=== PATIENT | male | born 1940 | race Caucasian/White ===

== ENCOUNTER 2017-01-09 09:26 | Inpatient (IN) | payer MEDICARE, MEDICAID ==
[~2017-01-09] VITALS: Ht 180.3 cm; Wt 112.0 kg
[~2017-01-09 09:26] MED LIST: ACTOS DPS30 MG PO; COUMADIN5 MG PO; DULERA 100/58.8 GM IH; EFFEXOR XR75 MG PO; FLOMAX DPS0.4 MG PO; HYDRODIURIL-DPS25 MG PO; LASIX20 MG PO; MAALOX DPS30 ML PO; MYRBETRIQ25 MG PO; NITROSTAT0.4 MG SL; PROSCAR DPS5 MG PO; PROTONIX40 MG PO; REQUIP1 MG PO; SURFAK DPS240 MG PO; THERAPEUTIC MUL1 TAB PO; TOPROL XL DPS50 MG PO; TYLENOL DPS325 MG PO; ZESTRIL DPS20 MG PO
--- NOTE | 2017-01-09 17:07 | ER ---
ADMIT: 01/09/2017 RM/LOC: ER [facility] MR#: [id number] [address] [address] DIONISIO RAYMUNDO [place] [address] Emergency Room Report SEX: M AGE: 76 : 1940 DATE: 01/09/2017 ADDENDUM: This 76-year-old white male coming in with chest pain. He has multiple comorbidities at this time. He has no nausea or vomiting. His pressure was down a little bit when he came in, however, he is on multiple blood pressure medicine and diuretic, so I think that was coming to play. His lactate and white count are all negative. He has no signs of fever. I do not believe this is related to sepsis at this time. At this time, I spoke with Dr. Raymundo. We are just going to give him gentle fluid to bring him back up because he could be volume depleted, because of the diuretics that he is on. He is going to hold medication and then admit him to PCU tele. CONDITION ON DISCHARGE: Fair. Justin Ennis MD/ armand JOB #: [id number] CC: Justin Ennis MD, Attending Physician UNKNOWN, Family Physician
[2017-01-15] MEDS ORDERED: OMNICEF DPS300 MG PO (11:24)
[2017-01-15] MEDS ORDERED: MIDODRINE HCL5 MG PO (11:24)
[2017-01-15] MEDS ORDERED: PRILOSEC DPS20 MG PO (11:27)
[2017-01-15] MEDS ORDERED: BREO ELLIP1 PUFF/DOS IH (11:27)
[2017-01-15] MEDS ORDERED: LEVOTHYROXINE75 MCG PO (11:28)
--- NOTE | 2017-01-17 14:36 | CO ---
ADMIT: 01/09/2017 RM/LOC: 626 [facility] MR#: [id number] [address] [address] [place] [address] Consultation SEX: M AGE: 76 : 1940 DATE OF CONSULTATION: 01/13/2017 ATTENDING PHYSICIAN: Kishore Raymundo CONSULTING PHYSICIAN: Semaj Jimenez DPM CHIEF COMPLAINT: Foot pain and elongated nails. HISTORY OF PRESENT ILLNESS: This patient was admitted to [facility] for chest pain and hypotension. The patient has also been diagnosed with a UTI. The patient was seen today in regard to painful elongated and thickened toenails bilaterally. The patient has no ability to debride these himself. These are painful with shoes and with ambulation. PAST MEDICAL HISTORY: Coronary artery disease, hypertension, CVA, diabetes, COPD, neurogenic bladder, atrial fibrillation, BPH, and depression. PAST SURGICAL HISTORY: Cholecystectomy and appendectomy. SOCIAL HISTORY: The patient lives independently and is a , denies tobacco alcohol or drug abuse. FAMILY HISTORY: Noncontributory. ALLERGIES: NO KNOWN DRUG ALLERGIES. MEDICATIONS: Please see the list for current medications. REVIEW OF SYSTEMS: Negative except for stated above. PHYSICAL EXAMINATION: VITAL SIGNS: Temp is 99.3, pulse is 91, respirations 18, blood pressure is 119/53, and O2 is 96% on room air. VASCULAR: DP and PT pulses are not palpable bilaterally. There is decreased hair growth bilaterally. SKIN: Cold to touch bilaterally. Capillary refill time is approximately 4 to 5 seconds to the digits bilaterally. NEUROLOGIC: Light touch sensation is significantly diminished to the digits bilaterally. DERMATOLOGIC: The nails 1 through 5 bilaterally are thick, discolored, crumbly with subungual debris and have distal loosening of the nail plate. These are painful on palpation bilaterally. No open lesions or ulcerations noted. No callus formation identified. MUSCULOSKELETAL: The patient has contracture of digits bilaterally. The patient has no acute musculoskeletal concerns today. LABORATORY DATA: Labs and cultures were reviewed. ASSESSMENT: 1. Onychomycosis. ADMIT: 01/09/2017 RM/LOC: 626 [facility] MR#: [id number] [address] [address] [place] [address] Consultation SEX: M AGE: 76 : 1940 2. Foot pain. 3. Peripheral vascular disease. PLAN: The patient's nails 1 through 5 bilaterally were debrided with a nail nipper. The patient tolerated this well. There were no complications. The patient may benefit from an arterial duplex ultrasound as he does have significant limitation and blood flow though he is asymptomatic. As the patient is asymptomatic, we will leave this to the primary care physician's discretion as the results may be inconsequential to the outcome. In some cases, a percutaneous intervention may be beneficial in some cases where there is ulceration or claudication pain. In any case, we will defer at this time unless primary care feels this would be beneficial. Thank you for this consultation. We will have him follow up in 9 to 12 weeks for outpatient foot care. Semaj Jimenez DPM/ armand JOB #: [id number] CC: Kishore Raymundo, Attending Physician Kishore Raymundo, Family Physician
--- NOTE | 2017-01-21 08:23 | HP ---
ADMIT: 01/09/2017 RM/LOC: 310 [facility] MR#: [id number] [address] [address] DIONISIO RAYMUNDO [facility] [place] [address] History and Physical SEX: M AGE: 76 : 1940 DATE OF SERVICE: 01/09/2017 REASON FOR HOSPITALIZATION: Chest discomfort and hypotension. HISTORY OF PRESENT ILLNESS: A 76-year-old, male patient of mine, who lives independently with assistance. Over the last two days, he reports chest discomfort which worsens with deep inspiration. Today, he came to the emergency room with the above report found to be hypotensive. We are admitting him to the hospital for further management and care. PAST MEDICAL HISTORY: 1. Coronary disease. 2. Hypertension. 3. Cerebrovascular accident. 4. Diabetes. 5. COPD. 6. Hyperlipidemia. 7. Neurogenic bladder. 8. Paroxysmal atrial fibrillation. 9. Chronic anticoagulation therapy. 10.BPH. 11.Urinary incontinence. 12.Depression. 13.Cholecystectomy. 14.Appendectomy. SOCIAL HISTORY: He lives independently. He is a . He does not smoke. FAMILY HISTORY: Noncontributory MEDICATION: List is being compiled and not available for my review at the time of this dictation. REVIEW OF SYSTEMS: He reports urinary incontinence, which is causing increasing difficulties with his independent status. He has asked that we consider putting a Muhammad catheter in him chronically. He has also by review of systems feels that he is weakening and declining in status, and inquires about whether he needs to go to a skilled nursing for long-term care. He has had the chest discomfort, not currently having chest pain. His not having nausea, vomiting, diarrhea, or bleeding. PHYSICAL EXAMINATION: GENERAL: He is pleasant. VITAL SIGNS: His blood pressure 109/54, currently after receiving some IV fluids. HEART: Regular. LUNGS: Clear. ABDOMEN: Round, soft, nontender. NEUROLOGIC: Left-sided paresis. He is chronic. EXTREMITIES: He has no edema. ADMIT: 01/09/2017 RM/LOC: 310 [facility] MR#: [id number] [address] [address] [place] [address] History and Physical SEX: M AGE: 76 : 1940 LABORATORY DATA: His INR is 2.74, creatinine 1.6. IMPRESSION: 1. Chest pain. 2. Hypotension, which I suspect is related to his medications. 3. Chronic urinary incontinence. 4. The patient was failing independent living. PLAN: Admit IV fluids. Adjust cardiac medications. Rule out NM. Since his INR is 2.7, creatinine 1.6, we will not pursue CTA at this time, but we will hold this and reserve his potential. We will ask Ripshear Operator to see and check urinalysis, place Muhammad catheter. Kishore Raymundo DO/ armand JOB #: [id number] CC: Kishore Raymundo, Attending Physician Kishore Raymundo, Family Physician
--- NOTE | 2017-02-11 08:20 | DS ---
ADMIT: 01/09/2017 RM/LOC: 626 [facility] MR#: [id number] [address] [address] [place] [address] General Discharge Summary SEX: M AGE: 76 : 1940 ADMISSION DATE: 01/09/2017 DISCHARGE DATE: 01/14/2017 REASON FOR HOSPITALIZATION: Chest pain. HISTORY OF PRESENT ILLNESS: This is a 76-year-old, male patient, who presented with chest pain, shortness of breath for two days. He reported that his chest pain worsened with deep inspiration. In the emergency room, he was found to be hypotensive. HOSPITAL COURSE: He was admitted to the hospital, started on IV fluids, and serial cardiac enzymes were performed. He did have a slight elevation in his creatinine, and therefore we did not immediately pursue a CTA of his chest. We did hold his lisinopril and Lasix to allow his blood pressure to rebound. Because of his orthostatic hypotension, I did start him on midodrine, which did improve his orthostatic hypotensive symptoms. I also put him on Levaquin to cover gram-negative rods on urine culture. His feet were in disrepair. I consulted Dr. Jimenez to manage his diabetic feet. On 01/14, he was stable, and we dismissed him to [facility]. FINAL DIAGNOSES: 1. Orthostatic hypotension, resolved with midodrine therapy. 2. Escherichia coli urinary tract infection, found to be quinolone resistant, and subsequently treated with Omnicef. 3. Diabetes. 4. Chronic anticoagulation therapy. 5. History of cerebrovascular accident. Kishore Raymundo DO/ armand JOB #: [id number] CC: Kishore D [place], DO, Attending Physician Kishore Raymundo DO, Family Physician
[2017-02-12] MEDS ORDERED: CLARITIN DPS10 MG PO (08:07)
[2017-02-12] MEDS ORDERED: COUMADIN4 MG PO (08:07)
[2017-02-12] MEDS ORDERED: PEPCID DPS20 MG PO (08:08)
[2017-02-12] MEDS ORDERED: LASIX DPS40 MG PO (08:08)
[2017-02-12] MEDS ORDERED: DULERA 100/58.8 GM IH (08:09)
[2017-02-12] MEDS ORDERED: NOVOLOG100 UNIT/2 SQ (08:09)
[2017-02-12] MEDS ORDERED: GLUTOSE 1537.5 GM PO (08:10)
[2017-02-12] MEDS ORDERED: COLACE-DPS100 MG PO (08:10)
[2017-02-12] MEDS ORDERED: GLUCAGON HCL1 MG IM (08:11)
[2017-02-12] MEDS ORDERED: MACROBID100 MG PO (08:11)
== END 2017-01-14 13:30 | DRG 690 ==
LOC: ER 09:26 → 3ICU 11:55 → 5MS 01-12 16:22 → 6PED 01-13 14:40
PROVIDERS: ADMIT Internal Medicine
DX: N39.0 Urinary tract infection, site not specified (principal); I69.354 Hemiplegia and hemiparesis following cerebral infarction affecting left non-dominant side; E11.51 Type 2 diabetes mellitus with diabetic peripheral angiopathy without gangrene; J44.9 Chronic obstructive pulmonary disease, unspecified; B35.1 Tinea unguium; N31.9 Neuromuscular dysfunction of bladder, unspecified; I48.0 Paroxysmal atrial fibrillation; I10 Essential (primary) hypertension; F32.9 Major depressive disorder, single episode, unspecified; B96.20 Unspecified Escherichia coli [E. coli] as the cause of diseases classified elsewhere; I95.1 Orthostatic hypotension; E86.9 Volume depletion, unspecified; E78.5 Hyperlipidemia, unspecified; I25.10 Atherosclerotic heart disease of native coronary artery without angina pectoris; N40.0 Benign prostatic hyperplasia without lower urinary tract symptoms; R32 Unspecified urinary incontinence; Z79.01 Long term (current) use of anticoagulants

== ENCOUNTER 2017-02-05 13:41 | Inpatient (IN) | payer MEDICARE, MEDICAID ==
[~2017-02-05] VITALS: Ht 180.3 cm; Wt 119.4 kg
--- NOTE | ~2017-02-05 | ECH ---
Transthoracic Echocardiography Report (TTE) Demographics Patient Name DIONISIO RAYMUNDO Date of Study 02/06/2017 Patient Number [id number] Visit Number [id number] Date of 1940 Room Number 431 Accession Number [id number] Gender Male Age 76 year(s) Referring Macy Daily MD Workforce Development Vice President Lucia Goyal Physician [facility] Physician Interpreting Phuc Hernandez MD Exchange Clerk Physician Supervising Ordering Physician Macy Daily MD, MD/P Nurse Stress Clamp Truck Driver Conclusions Summary Technically adequate exam. The estimated left ventricular ejection fraction is 55-60%. Diastolic assessment reveals Grade I diastolic dysfunction. The interatrial septum appears aneurysmal. There is trivial aortic regurgitation by color Doppler. Procedure Type of Study TTE procedure:Echo Complete SF. Procedure Date Date: 02/06/2017 Start: 01:58 PM Technical Quality: Adequate visualization Indications:Congestive heart failure, Coronary artery disease, paroxysmal a-fib, Hypertension and Diabetes. Appropriate Use Criteria: 9 Height: 71 inches Weight: 265 pounds BSA: 2.38 m Rhythm: Irregular HR: 98 bpm BP: 126/539 mmHg M-Mode/2D Measurements LV Diastolic Dimension: 4.78 cm LV Systolic Dimension: 4.04 cm LV Septum Diastolic: 0.89 cm LV PW Diastolic: 0.87 cm AO Root Dimension: 3.43 cm Cardiac Output: 6.14 l/min LA Dimension: 4.59 cm Cardiac Index: 2.58 l/min*m RV Diastolic Dimension: 3.25 cm LA volume index: 28 ml/m LVOT: 2.05 cm LVOT VTI: 18.98 cm RV Base: 2.9 cm LV Stroke volume: 62.61 ml RV Mid: 2.9 cm LV Stroke volume index: 26.31 ml/m TAPSE: 2.6 cm TDI-S': 13 cm/s Doppler Measurements AV Peak Velocity: 1.2 m/s MV Peak E-Wave: 0.99 m/s AV Peak Gradient: 5.76 mmHg MV Peak A-Wave: 1.28 m/s AV Mean Gradient: 3.53 mmHg MV E/A Ratio: 0.77 LVOT Peak Velocity: 0.97 m/s MV P1/2t: 47.3 msec AV Area (Continuity):3.5 cm AV P1/2t: 451 msec MV Deceleration Time: 140.9 msec TR Velocity:2.36 m/s MV Area (PHT): 4.65 cm TR Gradient:22.28 mmHg PV Peak Velocity: 1.14 m/s Estimated RAP:3 mmHg PV Peak Gradient: 5.22 mmHg Estimated RVSP: 25 mmHg Estimated PASP: 25.28 mmHg E' Septal Velocity: 0.05 m/s A' Septal Velocity: 0.09 m/s RA Area: 10.29 cm Findings Left Ventricle Normal left ventricle size and function. Diastolic assessment reveals Grade I diastolic dysfunction. Right Ventricle Normal right ventricle structure and function. Left Atrium Normal left atrial size. The interatrial septum appears aneurysmal. Right Atrium Normal right atrial size. Mitral Valve Normal mitral valve structure and function. Trivial mitral regurgitation by color Doppler. Aortic Valve The aortic valve is moderately sclerotic. There is trivial aortic regurgitation by color Doppler. Tricuspid Valve Normal tricuspid valve structure and function. Trivial tricuspid regurgitation by color Doppler. Normal pulmonary pressures. Pulmonic Valve Normal pulmonic valve structure and function. Trivial pulmonic valve regurgitation by color Doppler. Pericardial Effusion No evidence of pericardial effusion. Miscellaneous Visualized portions of the aortic root and ascending aorta appear normal in size. Pleural Effusion No evidence of pleural effusion. Contractility Score LV regional wall motion:(0-Non visualized 1-Normal 2-Hypokinesis 3-Akinesis 4-Dyskinesis 5-Aneurysm) Signature
[~2017-02-05 13:41] MED LIST changes: +BREO ELLIP1 PUFF/DOS IH; +LEVOTHYROXINE75 MCG PO; +MIDODRINE HCL5 MG PO; +OMNICEF DPS300 MG PO; +PRILOSEC DPS20 MG PO
--- NOTE | 2017-02-10 16:04 | ER ---
ADMIT: 02/05/2017 RM/LOC: 431 [facility] MR#: [id number] [address] [place], [place] [address] DIONISIO RAYMUNDO [address] [place] [address] Emergency Room Report SEX: M AGE: 76 : 1940 DATE: 02/05/2017 CHIEF COMPLAINT: Short of breath, fever. HISTORY OF PRESENT ILLNESS: Onset duration 7 days, still present. He has had exertional dyspnea with fever and chills. The custodial which would send him over and he just seems too sleepy, but he is able to answer questions when asked. He does not have any chest pain. REVIEW OF SYSTEMS: Negative except for the low-grade fever. PAST MEDICAL HISTORY: Cardiac disease with atrial fibrillation, diabetes type 2, hypertension, hyperlipidemia, CVA, GERD, COPD, PVD, restless legs syndrome, BPH, neurogenic bladder, and hypothyroidism. PAST SURGICAL HISTORY: His surgical procedures include cholecystectomy and appendectomy. MEDICATIONS: See T-sheet. ALLERGIES: HE IS ALLERGIC TO LEVAQUIN. PHYSICAL EXAMINATION: VITAL SIGNS: Blood pressure 140/67 with a heart rate of 102, temp is 100.2, O2 sats 88% on room air. GENERAL: He is somewhat somnolent. HEENT: Normal inspection. NECK: Supple. RESPIRATIONS: Decreased breath sounds throughout. CVS: Tachycardia. ABDOMEN: Nontender. SKIN: Good color. EXTREMITIES: Nontender. NEURO: Oriented x4 but still slightly sleepy. LABORATORY AND X-RAY DATA: I went ahead and did the sepsis workup on him, did not qualify for sepsis, fluid resuscitation. His lactic acid is 1.2, procalcitonin less than 0.05. His chest x-ray shows cardiomegaly without ADMIT: 02/05/2017 RM/LOC: 431 [facility] MR#: [id number] [address] [address] DIONISIO RAYMUNDO [address] [place] [address] Emergency Room Report SEX: M AGE: 76 : 1940 decompensation. His WBC is 2.4 and low, hemoglobin is 11.7, platelets 111. His glucose is 129, creatinine is 1.5 with a calcium of 8.3, and phosphorus 2.4. His AST is 49. His INR is 1.54. BNP is 2270 with UA wbc's 6, leukocytes 2+, bacteria rare, and nitrites positive. His EKG is 101, sinus rhythm. CLINICAL IMPRESSION: 1. Systemic inflammatory response syndrome. 2. Mid to moderate sepsis secondary to urinary tract infection. 3. Worsening of congestive heart failure. Dr. Raymundo contacted. Orders received for admission. SABI Hurley / Justin Ennis MD / modl JOB #: [id number] CC: Kishore Raymundo DO, Attending Physician Kishore Raymundo DO, Family Physician
[2017-02-12] MEDS ORDERED: CLARITIN DPS10 MG PO (08:07)
[2017-02-12] MEDS ORDERED: COUMADIN4 MG PO (08:07)
[2017-02-12] MEDS ORDERED: PEPCID DPS20 MG PO (08:08)
[2017-02-12] MEDS ORDERED: LASIX DPS40 MG PO (08:08)
[2017-02-12] MEDS ORDERED: DULERA 100/58.8 GM IH (08:09)
[2017-02-12] MEDS ORDERED: NOVOLOG100 UNIT/2 SQ (08:09)
[2017-02-12] MEDS ORDERED: GLUTOSE 1537.5 GM PO (08:10)
[2017-02-12] MEDS ORDERED: COLACE-DPS100 MG PO (08:10)
[2017-02-12] MEDS ORDERED: GLUCAGON HCL1 MG IM (08:11)
[2017-02-12] MEDS ORDERED: MACROBID100 MG PO (08:11)
--- NOTE | 2017-04-06 08:35 | DS ---
ADMIT: 02/05/2017 RM/LOC: 431 [facility] MR#: [id number] [address] [address] DIONISIO [place] [address] Discharge Summary SEX: M AGE: 76 : 1940 ADMISSION DATE: 02/05/2017 DISCHARGE DATE: 02/10/2017 REASON FOR HOSPITALIZATION: Shortness of breath and fever. HISTORY: Onset 7 days of shortness of breath and fever, exertional dyspnea, and chills. HOSPITAL COURSE: Admitted to the hospital, placed on nebulized treatments, IV Lasix, IV antibiotic therapy. Blood sugars were monitored. He was felt to have diastolic heart failure and echocardiogram was evaluated. He did have a UTI with gram-negative rods on urine culture and CT suggesting mild diverticulitis. His echo showed an EF of 55% to 60%. We managed his multiple diagnoses including urinary tract infection, diverticulitis, acute exacerbation of COPD, leukocytopenia, chronic anticoagulation therapy. Slowly his status improved and on 02/10/2017, he was feeling well, had overall stable and improved status and we dismissed him to [facility] with plans to return to see me in 2 weeks with a CBC and basic metabolic profile, receive an INR one week after dismissal and receive Macrobid 100 mg p.o. b.i.d. for 7 days. Kishore Raymundo DO/ armand JOB #: [id number] CC: Kishore Raymundo DO, Attending Physician Kishore Raymundo DO, Family Physician
== END 2017-02-10 10:55 | DRG 871 ==
LOC: ER 13:41 → 4PCU 17:13
PROVIDERS: ADMIT Internal Medicine
DX: A41.9 Sepsis, unspecified organism (principal); I50.31 Acute diastolic (congestive) heart failure; E11.51 Type 2 diabetes mellitus with diabetic peripheral angiopathy without gangrene; J44.1 Chronic obstructive pulmonary disease with (acute) exacerbation; K57.92 Diverticulitis of intestine, part unspecified, without perforation or abscess without bleeding; N39.0 Urinary tract infection, site not specified; I48.0 Paroxysmal atrial fibrillation; I47.1 Supraventricular tachycardia; F32.9 Major depressive disorder, single episode, unspecified; G25.81 Restless legs syndrome; I11.0 Hypertensive heart disease with heart failure; E78.5 Hyperlipidemia, unspecified; K21.9 Gastro-esophageal reflux disease without esophagitis; R32 Unspecified urinary incontinence; E66.9 Obesity, unspecified; Z68.38 Body mass index [BMI] 38.0-38.9, adult; N40.0 Benign prostatic hyperplasia without lower urinary tract symptoms; N31.9 Neuromuscular dysfunction of bladder, unspecified; E03.9 Hypothyroidism, unspecified; Z86.73 Personal history of transient ischemic attack (TIA), and cerebral infarction without residual deficits; Z79.01 Long term (current) use of anticoagulants; Z79.84 Long term (current) use of oral hypoglycemic drugs